=== PATIENT | female | born 1965 | race Caucasian/White ===

== ENCOUNTER 2017-10-22 21:30 | Emergency (ER) | payer MEDICARE ==
[~2017-10-22] VITALS: Ht 185.4 cm; Wt 108.9 kg
[~2017-10-22 21:30] MED LIST: ADULT LOW DOSE81 MG PO; ATIVAN0.5 MG PO; ATIVAN1 MG; ATORVASTATIN CA10 MG; CHLORPROMAZINE25 M1; CHLORPROMAZINE25 M1 PO; CIPROFLOXACIN500 M1 PO; CLEOCIN HCL300 MG PO; CYMBALTA60 MG PO; DILAUDID 2 MG TA2 MG PO; DILAUDID2 M1 PO; FENTANYL PA25 MCG/HR TP; FLEXERIL PO; HYDROCODON-ACE1 EAC7 PO; IBUPROFEN 200200 M1; IBUPROFEN 800800 M1 PO; IBUPROFEN 800800 MG PO; LISINOPRIL20 MG PO; MEDROLDOSEPACK PO; METFORMIN PO; NEURONTIN600 MG PO; NORCO 5-325 TA1 EACH PO; OXYCODONE HCL 55 MG PO; OXYCODONE HCL30 MG PO; OXYCONTIN40 MG PO; PERCOCET 5-3251 EACH PO; PHENERGAN 25 MG25 M1 PO; PHENERGAN25 M2 RC; PYRIDIUM200 MG PO; ROXICODONE5 MG PO; TOPROL XL100 MG PO; VALIUM10 MG PO; ZOLOFT100 MG PO; [UNRECOGNIZED DRUG - REMARK]
[2017-10-22 21:38] VITALS: BP 138/85
[2017-10-22] MEDS ORDERED: DOXYCYCLINE 10100 M1 PO (21:48)
== END 2017-10-22 21:59 | disposition home or self-care (01) ==
LOC: M.ERS 21:30
DX: L03.115 Cellulitis of right lower limb (principal); I10 Essential (primary) hypertension; K21.9 Gastro-esophageal reflux disease without esophagitis; G89.29 Other chronic pain; M54.9 Dorsalgia, unspecified; F17.210 Nicotine dependence, cigarettes, uncomplicated; Z88.5 Allergy status to narcotic agent; Z88.6 Allergy status to analgesic agent; Z88.0 Allergy status to penicillin; Z88.8 Allergy status to other drugs, medicaments and biological substances

== ENCOUNTER 2019-05-05 17:18 | Emergency (ER) | payer MEDICARE ==
[~2019-05-05] VITALS: Ht 185.4 cm; Wt 98.4 kg
[~2019-05-05 17:18] MED LIST changes: +DOXYCYCLINE 10100 M1 PO
[2019-05-05 17:52] VITALS: BP 102/51
[2019-05-05 18:16] LABS: INFLUENZA A ANTIGEN Negative (Negative); INFLUENZA B ANTIGEN Negative (Negative)
[2019-05-05] MEDS ORDERED: NEOMYC-POLYM-DEX5 ML OTIC (18:21)
== END 2019-05-05 18:29 | disposition home or self-care (01) ==
LOC: M.ERS 17:18
PROVIDERS: Nurse Practitioner
DX: H60.91 Unspecified otitis externa, right ear (principal); K21.9 Gastro-esophageal reflux disease without esophagitis; G89.29 Other chronic pain; E11.9 Type 2 diabetes mellitus without complications; F17.210 Nicotine dependence, cigarettes, uncomplicated; Z88.5 Allergy status to narcotic agent; Z88.0 Allergy status to penicillin; Z88.8 Allergy status to other drugs, medicaments and biological substances

== ENCOUNTER 2019-12-05 17:08 | Observation (INO) | payer MEDICARE, MEDICAID ==
[~2019-12-05] VITALS: Ht 185.4 cm; Wt 95.3 kg
[~2019-12-05 17:08] MED LIST changes: +NEOMYC-POLYM-DEX5 ML OTIC
[2019-12-05 17:09] VITALS: BP 136/71
[2019-12-05] MEDS ORDERED: NOVOLOG100 UNIT/1 SUBQ (17:11)
[2019-12-05] MEDS ORDERED: TRACEBA (17:12)
[2019-12-05] MEDS ORDERED: [UNRECOGNIZED DRUG - OTHER] (17:12)
--- NOTE | 2019-12-05 17:48 | NUR ---
UPON STANDING UP WHEN PERFORMING ORTHOSTATICS THE PATIENT HAD SYNCOPAL EPISODE, WAS SAT DOWN ON BED AND CAUTIOUSLY LAYED DOWN ONTO PILLOW. THE PATIENT PROMPTLY WOKE UP AND ASKED IF SHE PASSED OUT AGAIN. VITAL SIGNS AND EKG WAS THEN PERFORMED. THE PATIENT REMAINS A&O X4, STATES SHE JUST FEELS WEAK. SIDE RAILS UP FOR PATIENT PROTECTION.
[2019-12-05 17:58] LABS: ABSOLUTE BASOPHILS 0.1 thou/uL (0.0-0.2); ABSOLUTE EOSINOPHILS 0.1 thou/uL (0.0-0.7); ABSOLUTE LYMPHOCYTES 1.5 thou/uL (0.8-5.3); ABSOLUTE MONOCYTES 0.6 thou/uL (0.0-1.2); ABSOLUTE NEUTROPHILS 8.3 thou/uL (1.6-8.1); BASOPHILS 0.7 %; HEMATOCRIT 49.5 % (37.0-47.0); HEMOGLOBIN 16.8 gm/dL (12.0-15.0); LYMPHOCYTES 14.4 %; MCH 30.2 pg (26.0-34.0); MCHC 33.9 g/dL (28.0-37.0); MCV 89.2 fL (80.0-100.0); MONOCYTES 5.4 %; MPV 8.5 fl. (7.2-11.1); NUCLEATED RBCS 0 /100WBC; PLATELET COUNT* 279 thou/uL (150-400); POLYS 78.5 %; RBC 5.55 mil/uL (4.20-5.00); RDW-CV 14.3 % (10.5-14.5); WBC 10.6 thou/uL (4.0-11.0)
[2019-12-05 18:08] LABS: CALCIUM 8.8 mg/dL (8.5-10.1); CREATININE 1.8 mg/dL (0.6-1.3)
[2019-12-05 18:18] LABS: ALBUMIN 4.2 g/dL (3.4-5.0); TOTAL BILIRUBIN 0.5 mg/dL (<0.1-1.0); TOTAL PROTEIN 7.9 g/dL (6.4-8.2)
[2019-12-05 21:12] LABS: URINE BILIRUBIN NEGATIVE (Negative); URINE BLOOD NEGATIVE (Negative); URINE CLARITY CLEAR; URINE COLOR YELLOW; URINE GLUCOSE-RANDOM 3+ (Negative); URINE KETONES TRACE (Negative); URINE LEUKOCYTES-REFLEX NEGATIVE (Negative); URINE NITRITE-REFLEX NEGATIVE (Negative); URINE PROTEIN NEGATIVE (Negative); URINE UROBILINOGEN 0.2 E.U./dl (0.2-1.0)
[2019-12-05 21:25] VITALS: BP 122/70
[2019-12-05 21:30] VITALS: BP 132/73
[2019-12-05] MEDS ORDERED: NORCO 10-325 T1 EACH PO (22:17)
[2019-12-05] MEDS ORDERED: FARXIGA10 MG PO (23:16)
[2019-12-05] MEDS ORDERED: TRESIBA100 UNIT/1 SUBQ (23:18)
[2019-12-05] MEDS ORDERED: ZANAFLEX4 M2 PO (23:19)
[2019-12-05] MEDS ORDERED: LIPITOR 20 MG T20 M1 PO (23:19)
[2019-12-05] MEDS ORDERED: SODIUM BICARBO650 M3 PO (23:21)
[2019-12-06] VITALS: BP 146/67
[2019-12-06 04:36] VITALS: BP 144/61
--- NOTE | 2019-12-06 06:40 | NUR ---
RECEIVED PT PER CART AT APPROX 2130. PT IS AWAKE AND ORIENTED X4. ASSESSMENT DONE AND CHARTED. PT HAS NAUSEA AND VOMITING RELEIVED BY MEDICINE GIVEN PER MAR. FENTANYL GIVEN FOR CHRONIC BACK PAIN WITH PARTIAL RELIEF. HIGH FALL PRECAUTIONS IN PLACE. CALL LIGHT WITHIN REACH. PT IS CLOSELY MONITORED.
[2019-12-06 07:20] VITALS: BP 160/76
[2019-12-06 08:25] LABS: HEMATOCRIT 46.8 % (37.0-47.0); HEMOGLOBIN 15.6 gm/dL (12.0-15.0); MCH 29.9 pg (26.0-34.0); MCHC 33.3 g/dL (28.0-37.0); MCV 89.7 fL (80.0-100.0); MPV 8.2 fl. (7.2-11.1); NUCLEATED RBCS 0 /100WBC; PLATELET COUNT* 246 thou/uL (150-400); RBC 5.22 mil/uL (4.20-5.00); RDW-CV 14.3 % (10.5-14.5); WBC 11.1 thou/uL (4.0-11.0)
[2019-12-06 08:39] LABS: CALCIUM 8.8 mg/dL (8.5-10.1); CREATININE 1.6 mg/dL (0.6-1.3); POTASSIUM 4.1 mmol/L (3.5-5.1); TOTAL BILIRUBIN 0.8 mg/dL (<0.1-1.0); TOTAL PROTEIN 7.4 g/dL (6.4-8.2)
--- NOTE | 2019-12-06 09:36 | NUR ---
Nutrition: Pt admitted with gastroenteritis, syncope, dehydration. N/V/D x1 week UNIT SECY. Consult received for poor intake and wt loss. Pt stated she usually weighs 225#, now 210# and hypovolemic. She hasn't eaten much in a week. She did state she was able to drink a large water throughout the night and is about to attempt clear liquid BKFST. BG 200s, alb 4, WBC 11.1. Meds noted. H/o DM, chronic back pain. Pt agreed to Ensure Clear Apple for added protein and nutrition - RD ordered for lunch. Hopeful for increased po intake as N/V resolve. Will follow closely. Mild risk at this time. F/u 12/09/19.
--- NOTE | 2019-12-06 10:48 | EKG ---
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 : 1965 Requested By: Radha Sanchez Order Number: [id number] MD: Eulogio Weir Measurements Intervals [place] Rate: 58 P: 71 DC: 162 QRS: 55 QRSD: 108 T: 73 QT: 473 QTc: 465 Interpretive Statements Sinus rhythm septal infarct, age indeterminate Baseline wander in lead(s) II,III,aVR,aVF Compared to ECG 04/07/2013 11:52:55 No significant changes Electronically Signed On 12-06-2019 10:47:36 CDT by Eulogio Weir [email or web address] <ELECTRONICALLY SIGNED> By: Eulgoio Weir MD, FAC 12/06/19 1047 1737 1737 Eulogio Weir MD, FAC /EPI
[2019-12-06 10:51] LABS: ABSOLUTE LYMPHOCYTES 0.8 thou/uL (0.8-5.3); ABSOLUTE MONOCYTES 0.3 thou/uL (0.0-1.2); ABSOLUTE NEUTROPHILS 9.9 thou/uL (1.6-8.1)
[2019-12-06 10:52] LABS: ANISOCYTOSIS 1+; PLATELET ESTIMATE ADEQUATE; POIKILOCYTOSIS 1+
[2019-12-06 12:00] VITALS: BP 149/68
[2019-12-06 16:53] VITALS: BP 149/68
== END 2019-12-06 19:10 | disposition home or self-care (01) ==
LOC: M.ERS 17:08 → M.2W 19:46 → M.TBA-ER 19:46 → M.2W 21:30
PROVIDERS: Nurse Practitioner Family; ADMIT Internal Medicine; ATTEND Internal Medicine
DX: R55 Syncope and collapse (principal); E86.0 Dehydration; R11.2 Nausea with vomiting, unspecified; E11.9 Type 2 diabetes mellitus without complications; K21.9 Gastro-esophageal reflux disease without esophagitis; M54.9 Dorsalgia, unspecified; G89.29 Other chronic pain; F17.210 Nicotine dependence, cigarettes, uncomplicated; I10 Essential (primary) hypertension; D72.829 Elevated white blood cell count, unspecified

== ENCOUNTER 2019-12-10 15:49 | Inpatient (IN) | payer MEDICARE, MEDICAID ==
[~2019-12-10] VITALS: Ht 185.4 cm; Wt 100.1 kg
[~2019-12-10 15:49] MED LIST changes: +FARXIGA10 MG PO; +LIPITOR 20 MG T20 M1 PO; +NORCO 10-325 T1 EACH PO; +NOVOLOG100 UNIT/1 SUBQ; +SODIUM BICARBO650 M3 PO; +TRACEBA; +TRESIBA100 UNIT/1 SUBQ; +ZANAFLEX4 M2 PO; +[UNRECOGNIZED DRUG - OTHER]
[2019-12-10 16:04] VITALS: BP 149/90
[2019-12-10 16:09] LABS: URINE BILIRUBIN NEGATIVE (Negative); URINE BLOOD NEGATIVE (Negative); URINE CLARITY CLEAR; URINE COLOR YELLOW; URINE GLUCOSE-RANDOM 3+ (Negative); URINE KETONES 1+ (Negative); URINE LEUKOCYTES-REFLEX NEGATIVE (Negative); URINE NITRITE-REFLEX NEGATIVE (Negative); URINE PROTEIN 1+ (Negative); URINE UROBILINOGEN 0.2 E.U./dl (0.2-1.0)
[2019-12-10 16:35] LABS: ABSOLUTE BASOPHILS 0.1 thou/uL (0.0-0.2); ABSOLUTE EOSINOPHILS 0.1 thou/uL (0.0-0.7); ABSOLUTE MONOCYTES 0.7 thou/uL (0.0-1.2); ABSOLUTE NEUTROPHILS 9.5 thou/uL (1.6-8.1); BASOPHILS 0.6 %; EOSINOPHILS 0.9 %; HEMATOCRIT 50.7 % (37.0-47.0); HEMOGLOBIN 17.3 gm/dL (12.0-15.0); MCH 30.1 pg (26.0-34.0); MCV 88.7 fL (80.0-100.0); MONOCYTES 5.4 %; MPV 8.6 fl. (7.2-11.1); NUCLEATED RBCS 0 /100WBC; PLATELET COUNT* 310 thou/uL (150-400); POLYS 77.1 %; RBC 5.72 mil/uL (4.20-5.00); WBC 12.4 thou/uL (4.0-11.0)
[2019-12-10 16:54] LABS: CALCIUM 9.2 mg/dL (8.5-10.1); CREATININE 1.7 mg/dL (0.6-1.3); POTASSIUM 4.3 mmol/L (3.5-5.1)
[2019-12-10 16:58] LABS: ALBUMIN 4.2 g/dL (3.4-5.0); TOTAL BILIRUBIN 0.8 mg/dL (<0.1-1.0); TOTAL PROTEIN 7.7 g/dL (6.4-8.2)
[2019-12-10 19:30] VITALS: BP 97/67
[2019-12-10 20:00] VITALS: BP 117/76
[2019-12-10 23:17] LABS: AMP/METHAMP Negative (Negative); BARBITURATES Negative (Negative); BENZODIAZEPINES POSITIVE (Negative); COCAINE Negative (Negative); METHADONE Negative (Negative); OPIATES Negative (Negative); PCP Negative (Negative); THC POSITIVE (Negative)
[2019-12-11] VITALS: BP 123/64
[2019-12-11 04:00] VITALS: BP 119/65
--- NOTE | 2019-12-11 04:56 | NUR ---
Assumed pt care at 1999. Get situated to room. Aox4, Room air 90's. Tele in placed tracing sinus rhythm/ brett. Pt complains of chronic back pain rated 8 meds given (see mar) with partial relief. IV intact, IVF infusing as ordered. Pt accu check. Pt having nausea, compazine (2x) given with relief. Pt on fall precaution, pt refusing to put bed alarm, state "I promise to used call light". Pt Stand by assist, uses commode. Pt for cardiology consult. Will continue to monitor.
[2019-12-11 05:19] LABS: ABSOLUTE EOSINOPHILS 0.1 thou/uL (0.0-0.7); ABSOLUTE MONOCYTES 0.8 thou/uL (0.0-1.2); ABSOLUTE NEUTROPHILS 6.7 thou/uL (1.6-8.1); BASOPHILS 0.3 %; EOSINOPHILS 1.4 %; HEMATOCRIT 42.2 % (37.0-47.0); LYMPHOCYTES 28.4 %; MCH 30.6 pg (26.0-34.0); MCHC 34.7 g/dL (28.0-37.0); MCV 88.1 fL (80.0-100.0); MPV 8.5 fl. (7.2-11.1); NUCLEATED RBCS 0 /100WBC; PLATELET COUNT* 247 thou/uL (150-400); POLYS 62.9 %; RBC 4.78 mil/uL (4.20-5.00); RDW-CV 13.9 % (10.5-14.5); WBC 10.7 thou/uL (4.0-11.0)
[2019-12-11 05:29] LABS: HEMOGLOBIN 14.6 gm/dL (12.0-15.0)
[2019-12-11 05:35] LABS: CALCIUM 8.3 mg/dL (8.5-10.1); CREATININE 1.2 mg/dL (0.6-1.3)
[2019-12-11 05:44] LABS: POTASSIUM 3.1 mmol/L (3.5-5.1)
[2019-12-11 08:14] VITALS: BP 122/67
--- NOTE | 2019-12-11 13:29 | EKG ---
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 : 1965 Requested By: Susan Costa Order Number: [id number] MD: Eulogio Weir Measurements Intervals [place] Rate: 68 P: 75 GA: 149 QRS: 59 QRSD: 105 T: 89 QT: 547 QTc: 582 Interpretive Statements Sinus rhythm Anteroseptal infarct, age indeterminate Prolonged QT interval Compared to ECG 12/05/2019 17:37:29 Prolonged QT interval now present Myocardial infarct finding still present Electronically Signed On 12-11-2019 13:28:14 CDT by Eulogio Weir [email or web address] <ELECTRONICALLY SIGNED> By: Eulogio Weir MD, FACC 12/11/19 1328 1742 1742 Eulogio Weir MD, FAC /EPI
--- NOTE | 2019-12-11 13:45 | CON ---
[address] [address] CONSULTATION Name: RAMIREZ LÓPEZ Room: [address] IN M.R.#: [id number] Admission: 12/10/19 Attend Phys: Narendra Bell MD Discharge: Date of : 61 Report #: [id number] THIS REPORT FOR: //name// cc: ALEM Garcia family physician/PCP ALEM - No family physician/PCP ~ THIS REPORT FOR: //name// CC: Narendra CALL[facility]AY [facility] physician/PCP DATE OF SERVICE: 12/11/2019 CARDIOLOGY CONSULTATION HISTORY OF PRESENT ILLNESS: The patient is a 54-year-old white female whom I was asked to see in the hospital today after she had a syncopal spell. The patient has no previous history of heart disease. She is not very active because of chronic back pain. She notes for the past several days, she has had nausea and vomiting. She had some loose stools. Denied any fever. She has had some epigastric burning. There was no blood in her vomit. She has had no appetite. For the past several days, she has had intermittent episodes, which she feels lightheaded and will actually fall to the ground. She has not hurt herself. There is no seizure activity. Denied any biting of her tongue or loss of bowel or bladder continence. She has noticed some heaviness in her epigastrium. She has no history of chest pain, shortness of breath, palpitations, heart murmur. The patient was actually in the hospital here at [place] last week after she had vomiting, felt to be secondary to gastritis with dehydration and a syncopal spell. She was discharged home, but brought back to the hospital yesterday. She is admitted for further evaluation and treatment. PAST MEDICAL HISTORY: She has had back surgery, shoulder surgery, surgery on left foot following an accident. She has a history of hypertension, diabetes. She is on medications including insulin. MEDICATIONS: Her current medications consist of metoprolol, lisinopril, Cymbalta, insulin, Farxiga, Zanaflex, Lipitor. ALLERGIES: SHE HAS ALLERGY TO CODEINE, MORPHINE, PENICILLIN. FAMILY HISTORY: Her sister had a heart attack. SOCIAL HISTORY: She is . She and her live here in [place]. She is on disability due to chronic back pain. She has been under a lot of stress. Her apparently has rectal cancer. She does smoke a pack of [address] [place] [address] CONSULTATION Name: RAMIREZ LÓPEZ Room: [address] IN [facility].#: [id number] Admission: 12/10/19 Attend Phys: Narendra Bell MD Discharge: Date of : 61 Report #: [id number] cigarettes a day. No alcohol abuse. REVIEW OF SYSTEMS: She has had no history of stroke. She does use an inhaler occasionally. No history of liver disease. She does have chronic kidney disease. No cancer. She saw a psychiatrist in the past because of stress. No chronic skin condition. PHYSICAL EXAMINATION: GENERAL: Revealed a middle-aged female, who appeared in no distress. VITAL SIGNS: She had a blood pressure of 120/70, pulse 70. She is afebrile. HEENT: She was anicteric. Conjunctivae pink. Mucous membranes moist. NECK: Veins nondistended. No carotid bruits. CHEST: Clear to auscultation. CARDIOVASCULAR: Regular rate. No significant murmur. ABDOMEN: Soft. EXTREMITIES: Had no edema. Dorsalis pedis pulse was 1+ bilaterally. SKIN: Cool and dry. NEUROLOGIC: Nonfocal. Her ECG on admission showed a sinus rhythm. There is poor R-wave progression, nonspecific T-wave changes. There was noted to be QT prolongation. Her workup so far, she had a portable chest x-ray that showed possible right lower infiltrate. CT scan of the head was performed without contrast, this showed no acute abnormality. She was given contrast that showed no pulmonary embolus. LABORATORY DATA: Sodium 140, potassium 3.1, BUN 20, creatinine 1.2. Her troponin is 0.25. Her white blood cell count is 10.7, hemoglobin 14.6. IMPRESSION AND RECOMMENDATIONS: 1. Recurrent falls and possible syncope, suspect secondary to uncontrolled glucose and dehydration secondary to vomiting. Recommend echocardiogram. 2. Chronic back pain. 3. Diabetes. The patient has not been taking her insulin. 4. Tobacco abuse. 5. Chronic kidney disease. 6. Hyperkalemia. I would recommend replacing her potassium. 7. Borderline troponin. No evidence of acute myocardial infarction. 8. Abnormal ECG. Recommend echocardiogram. <ELECTRONICALLY SIGNED> By: Eulogio Weri MD, [facility] 12/11/19 1345 0926 [id number] Weir MD, [facility] /nt
[2019-12-11 14:38] VITALS: BP 116/67
[2019-12-11 16:00] VITALS: BP 100/61; BP 101/62; BP 105/64
--- NOTE | 2019-12-11 16:45 | NUR ---
PT REMAINS ON ENHANCED PRECAUTIONS PENDING COVID 19 TEST. IVF INFUSING. PM INSULIN HELD R/T BG 52. JUICE AND SNACK PROVIDED.
[2019-12-11 20:00] VITALS: BP 138/71
[2019-12-12] VITALS: BP 128/64
[2019-12-12 02:06] LABS: GLYCOHEMOGLOBIN (HGB A1C) 9.6 % (4.8-5.6)
[2019-12-12 04:00] VITALS: BP 117/70
--- NOTE | 2019-12-12 07:03 | NUR ---
ASSUMED CARE OF PT AFTER REPORT AT 1930. PT A&OX4. VSS. PHYSICAL ASSESSMENT COMPLETED AND CHARTED. PT ON RA. PT TRACING SR/SB ON TELE. PT COMPLAINED OF BACK PAIN-MED GIVEN PER MAR. MAINTAINED ON ENHANCED ISOLATION-PENDING COVID. PT ABLE TO SLEEP WELL ON BED. CALL LIGHT WITHIN REACH.
[2019-12-12 07:07] LABS: ABSOLUTE EOSINOPHILS 0.2 thou/uL (0.0-0.7); ABSOLUTE LYMPHOCYTES 2.9 thou/uL (0.8-5.3); ABSOLUTE MONOCYTES 0.5 thou/uL (0.0-1.2); ABSOLUTE NEUTROPHILS 4.9 thou/uL (1.6-8.1); BASOPHILS 0.6 %; EOSINOPHILS 2.3 %; HEMATOCRIT 40.5 % (37.0-47.0); HEMOGLOBIN 13.6 gm/dL (12.0-15.0); LYMPHOCYTES 33.6 %; MCH 30.2 pg (26.0-34.0); MCHC 33.7 g/dL (28.0-37.0); MCV 89.7 fL (80.0-100.0); MONOCYTES 6.4 %; MPV 8.2 fl. (7.2-11.1); NUCLEATED RBCS 0 /100WBC; PLATELET COUNT* 231 thou/uL (150-400); POLYS 57.1 %; RBC 4.51 mil/uL (4.20-5.00); RDW-CV 14.2 % (10.5-14.5); WBC 8.5 thou/uL (4.0-11.0)
[2019-12-12 07:28] LABS: ANION GAP 7 mmol/L (7-16); BUN 14 mg/dL (7-18); CALCIUM 8.3 mg/dL (8.5-10.1); CHLORIDE 108 mmol/L (98-107); CHOLESTEROL 84 mg/dL (<200); CO2 25 mmol/L (21-32); CREATININE 1.4 mg/dL (0.6-1.3); GLUCOSE 93 mg/dL (70-99); HDL CHOLESTEROL 30 mg/dL (>40); LDL CHOLESTEROL 27 mg/dL (<100); POTASSIUM 4.1 mmol/L (3.5-5.1); SODIUM 140 mmol/L (136-145); TC:HDL 2.8 Ratio (Not establshd); TRIGLYCERIDE 135 mg/dL (<150); VLDL 27 mg/dL (<40)
[2019-12-12 07:29] LABS: SERUM ASSESSMENT Clear
[2019-12-12 08:00] VITALS: BP 104/61
[2019-12-12] MEDS ORDERED: LEVAQUIN 750 M750 MG PO (10:55)
[2019-12-12 11:39] VITALS: BP 115/67
--- NOTE | 2019-12-12 12:08 | NUR ---
pt is aox4 . covid negative. on ra. complains of pain . fentanyl given. accucheck. no insulin needed. complains of nausea nd vomiting in late am before lunch. nausea medicine given. discharge pending neuro and cardio ok. neuro was contacted and is ok with her discharge. cardio is to come and see the patient before she could leave. will continue to monitor pt
--- NOTE | 2019-12-12 16:09 | NUR ---
this nurse communicated with school operations manager who wants to see patient before pt leaves the hospital. pt was awaiting for school operations manager, but pt got impatient and decided to leave ama. ama paper was signed and placed in chart. iv line removed and heart monitor retrieved. pt ambulatory.
--- NOTE | 2019-12-12 16:29 | 2DMMODE ---
[place] [address] 2 D/M-MODE ECHOCARDIOGRAM Name: RAMIREZ LÓPEZ Room: [address] IN .#: [id number] Admission: 12/10/19 Attend Phys: Narendra Bell, Discharge: 12/12/19 Date of : 61 Date of Service: 12/12/19 1628 Report #: [id number] THIS REPORT FOR: cc: FAM - No family physician/PCP FAM - No family physician/PCP Jw Iqbal MD [facility] ~ APPROVED REPORT Study performed: 12/12/2019 15:03:24 EXAM: Comprehensive 2D, Doppler, and color-flow Echocardiogram Patient Location: In-Patient Room #: 209 BSA: 2.22 HR: 61 bpm BP: 104/61 mmHg Other Information Study Quality: Good Indications Abnormal ECG 2D Dimensions IVSd: 14.43 (7-11mm) LVOT Diam: 19.65 (18-24mm) LVDd: 43.46 mm PWd: 11.21 (7-11mm) Ascending Ao: 28.00 (22-36mm) LVDs: 32.08 (25-40mm) Aortic Root: 24.79 mm Volumes Left Atrial Volume (Systole) LA ESV Index: 18.10 mL/m2 Aortic Valve AoV Peak Mendez.: 0.79 m/s AO Peak Gr.: 2.47 mmHg LVOT Max P.28 mmHg AO Mean Gr.: 1.43 mmHg LVOT Mean P.71 mmHg LVOT Max V: 0.56 m/s AO V2 VTI: 18.96 cm LVOT Mean V: 0.39 m/s KENNEDY (VTI): 2.08 cm2 LVOT V1 VTI: 12.98 [place] [address] 2 D/M-MODE ECHOCARDIOGRAM Name: RAMIREZ LÓPEZ Room: [address] IN ..#: [id number] Admission: 12/10/19 Attend Phys: Narendra Bell, Discharge: 12/12/19 Date of : 61 Date of Service: 12/12/19 1628 Report #: [id number] E/A Ratio: 1.04 MV Decel. Time: 238.27 ms MV E Max Mendez.: 0.49 m/s MV PHT: 69.10 ms MVA (PHT): 3.18 cm2 TDI E/Lateral E': 6.13 E/Medial E': 7.00 Medial E' Mendez.: 0.07 m/s Lateral E' Mendez.: 0.08 m/s Pulmonary Valve PV Peak Mendez.: 0.61 m/s PV Peak Gr.: 1.49 mmHg Left Ventricle The left ventricle is normal size. There is normal LV segmental wall motion. Borderline concentric left ventricular hypertrophy. Left ventricular systolic function is borderline. LVEF is 50-55%. Grade I - abnormal relaxation pattern. Right Ventricle The right ventricle is normal size. The right ventricular systolic function is normal. Atria The left atrium size is normal. The right atrium size is normal. Aortic Valve The aortic valve is normal in structure. No aortic regurgitation is present. There is no aortic valvular stenosis. Mitral Valve The mitral valve is normal in structure. There is no mitral valve regurgitation noted. No evidence of mitral valve stenosis. Tricuspid Valve The tricuspid valve is normal in structure. There is no tricuspid valve regurgitation noted. Pulmonic Valve The pulmonary valve is normal in structure. There is no pulmonic valvular regurgitation. Great Vessels The aortic root is normal in size. IVC is [place] [address] 2 D/M-MODE ECHOCARDIOGRAM Name: RAMIREZ LÓPEZ Room: [address] IN ..#: [id number] Admission: 12/10/19 Attend Phys: Narendra Bell, Discharge: 12/12/19 Date of : 61 Date of Service: 12/12/19 1628 Report #: [id number] collapses >50% with inspiration. Pericardium There is no pericardial effusion. <Conclusion> The left ventricle is normal size. Borderline concentric left ventricular hypertrophy. Left ventricular systolic function is borderline. LVEF is 50-55%. Grade I - abnormal relaxation pattern. The right ventricle is normal size. The left atrium size is normal. The aortic valve is normal in structure. The mitral valve is normal in structure. The tricuspid valve is normal in structure. IVC is normal in size and collapses >50% with inspiration. There is no pericardial effusion. There is normal LV segmental wall motion. <ELECTRONICALLY SIGNED> By: Jw Iqbal MD, [facility] 12/12/19 1628 1628 1628 Jw Iqbal MD, FACC /INF
--- NOTE | 2019-12-14 12:39 | CON ---
[address] [address] CONSULTATION Name: RAMIREZ LÓPEZ Room: [address] IN M.R.#: [id number] Admission: 12/10/19 Attend Phys: Narendra Bell MD Discharge: 12/12/19 Date of : 61 Report #: [id number] THIS REPORT FOR: //name// cc: ALEM Garcia family physician/PCP ALEM Garcia family physician/PCP ~ THIS REPORT FOR: //name// CC: Narendra FERRARA physician/PCP DATE OF SERVICE: 12/11/2019 HISTORY OF PRESENT ILLNESS: This is a 54-year-old female patient who was here for multiple episodes of syncope. Neurological consultation is being requested to evaluate the patient for any neurological etiology for syncope. Her history is somewhat poorly defined. She indicates she has been undergoing a lot of stress and the reason has been summarized in H and P. Reviewing the record, it would appear that she had at least one episode of hypoglycemia of a blood sugar of 52 and one episode of blood pressure being low at 97/67. She is being evaluated by Cardiology. She also had some vomiting. She had some electrolyte imbalances also with potassium of 3.1. Nobody has noticed any tonic-clonic activity in this patient. She just passes out, it typically lasts for a few seconds, and it may last for a minute. She does have some bronchitis and she is on COVID precautions. So, history is not very suspicious for any seizures or even TIA because no focal neurological deficit has been noticed. She does have some history of back pain. Her troponin is slightly high. She does have chronic kidney disease. This was a relevant 14-point review of system. PAST MEDICAL HISTORY: Negative for any stroke. FAMILY HISTORY: Unremarkable. SOCIAL HISTORY: She smokes. PHYSICAL EXAMINATION: Indicates she is alert, responsive, and able to follow simple and complex command. Her speech looks intact. Cranial nerve examination 2-12 looks mostly unremarkable. Neuromuscular examination is symmetrical. She is able to ambulate. Cardiac and respiratory examinations appear noncontributory. LABORATORY DATA: Her white count is 10.7, potassium is slightly low. Head CT is mostly unremarkable. IMPRESSION AND PLAN: It is unlikely that [place] [address] CONSULTATION Name: RAMIREZ LÓPEZ Room: [address]#: [id number] Admission: 12/10/19 Attend Phys: Narendra Bell MD Discharge: 12/12/19 Date of : 61 Report #: [id number] the patient's symptoms. Her blood sugar is fluctuating and it was low, her blood pressure went low and I suspect systemic causes are much more likely, but she did have a profound episode where she was found on the ground, this lasted only a minute. I will get an EEG and MRI to exclude any brain pathology tomorrow. I discussed all of it with the patient and she wants to follow this plan. Dr. Keys will follow up this patient with you from tomorrow. Thank you very much for this referral. <ELECTRONICALLY SIGNED> By: Jamey Wilks MD 12/14/19 1239 1836 1911Pjakub Wilks MD /nt
== END 2019-12-12 16:00 | disposition left against medical advice (07) | DRG 177 ==
LOC: M.ERS 15:49 → M.TBA-ER 17:43 → M.2W 17:43
PROVIDERS: Internal Medicine Cardiovascular Disease; Physician Assistant; ADMIT Internal Medicine; ATTEND Internal Medicine
DX: J15.6 Pneumonia due to other Gram-negative bacteria (principal); R65.11 Systemic inflammatory response syndrome (SIRS) of non-infectious origin with acute organ dysfunction; N17.9 Acute kidney failure, unspecified; E86.0 Dehydration; I95.1 Orthostatic hypotension; F41.9 Anxiety disorder, unspecified; F17.210 Nicotine dependence, cigarettes, uncomplicated; E11.22 Type 2 diabetes mellitus with diabetic chronic kidney disease; R79.89 Other specified abnormal findings of blood chemistry; M47.9 Spondylosis, unspecified; F32.9 Major depressive disorder, single episode, unspecified; N18.3 Chronic kidney disease, stage 3 (moderate); F19.10 Other psychoactive substance abuse, uncomplicated; G89.29 Other chronic pain; K21.9 Gastro-esophageal reflux disease without esophagitis; M54.9 Dorsalgia, unspecified; J20.9 Acute bronchitis, unspecified; I12.9 Hypertensive chronic kidney disease with stage 1 through stage 4 chronic kidney disease, or unspecified chronic kidney disease; E87.5 Hyperkalemia; Z79.4 Long term (current) use of insulin; Z79.899 Other long term (current) drug therapy; Z88.5 Allergy status to narcotic agent; Z88.0 Allergy status to penicillin; Z20.828 Contact with and (suspected) exposure to other viral communicable diseases

== ENCOUNTER → 2019-12-26 | Outpatient (CLI) | payer MEDICARE, MEDICAID ==
[~2019-12-26] MED LIST changes: +LEVAQUIN 750 M750 MG PO
--- NOTE | ~2019-12-26 | EEG ---
[address] [address] EEG STUDY REPORT Name: RAMIREZ LÓPEZ Room: [facility].#: [id number] Admission: 12/26/19 Attend Phys: Amanda Fregoso Discharge: Date of : 61 Report #: [id number] THIS REPORT FOR: //name// CC: Amanda Osheag DATE OF SERVICE: 12/26/2019 This patient is being evaluated for syncope. EEG was done by placing the electrode by standard 10-20 system of electrode placement. Both referential and sequential montages were used for recording. Background activity in this patient's EEG is about 9 Hz and 30 microvolt. This patient went to sleep that is associated with bilateral slowing and vertex sharp waves. Photic stimulation is unremarkable. Throughout the record, no active epileptiform activity was noticed. IMPRESSION: This patient's EEG is unremarkable. Thank you very much for this referral. By: 1632 1739Jamey Wilks MD /oliver
== END ==
LOC: M.CRD 14:00
PROVIDERS: ATTEND Family Medicine
DX: R55 Syncope and collapse (principal)

== ENCOUNTER 2020-01-15 13:56 | Emergency (ER) | payer MEDICARE, MEDICAID ==
[~2020-01-15] VITALS: Ht 185.4 cm; Wt 99.8 kg
[2020-01-15 15:20] LABS: HEMATOCRIT 50.6 % (37.0-47.0); MCH 29.8 pg (26.0-34.0); MCHC 33.6 g/dL (28.0-37.0); MCV 88.5 fL (80.0-100.0); MPV 8.5 fl. (7.2-11.1); NUCLEATED RBCS 0 /100WBC; PLATELET COUNT* 258 thou/uL (150-400); RBC 5.72 mil/uL (4.20-5.00); RDW-CV 14.1 % (10.5-14.5); WBC 10.6 thou/uL (4.0-11.0)
[2020-01-15 15:29] LABS: CALCIUM 9.1 mg/dL (8.5-10.1); CREATININE 1.7 mg/dL (0.6-1.3); POTASSIUM 4.3 mmol/L (3.5-5.1)
[2020-01-15 15:40] LABS: TOTAL BILIRUBIN 0.7 mg/dL (<0.1-1.0)
[2020-01-15 15:42] LABS: ABSOLUTE LYMPHOCYTES 0.6 thou/uL (0.8-5.3); ABSOLUTE MONOCYTES 0.5 thou/uL (0.0-1.2); ABSOLUTE NEUTROPHILS 9.4 thou/uL (1.6-8.1); ATYPICAL LYMPHS 2 %; PLATELET ESTIMATE ADEQUATE
[2020-01-15 16:15] LABS: URINE BILIRUBIN NEGATIVE (Negative); URINE BLOOD NEGATIVE (Negative); URINE CLARITY CLEAR; URINE COLOR YELLOW; URINE GLUCOSE-RANDOM 3+ (Negative); URINE KETONES 1+ (Negative); URINE LEUKOCYTES-REFLEX NEGATIVE (Negative); URINE NITRITE-REFLEX NEGATIVE (Negative); URINE PROTEIN 2+ (Negative); URINE SPECIFIC GRAVITY 1.015 (1.005-1.030); URINE UROBILINOGEN 0.2 E.U./dl (0.2-1.0)
[2020-01-15 16:21] LABS: BACTERIA-REFLEX None Seen /HPF (None Seen); SQUAMOUS 4-10 Moderate /LPF (0-3); URINE RBC None Seen /HPF (0-2); URINE WBC-REFLEX None Seen /HPF (0-5)
[2020-01-15 16:22] LABS: AMP/METHAMP Negative (Negative); BARBITURATES Negative (Negative); BENZODIAZEPINES POSITIVE (Negative); CASTS None Seen /LPF (None Seen); COCAINE Negative (Negative); CRYSTALS None Seen /LPF (None Seen); METHADONE Negative (Negative); MUCUS 0-3 Light strn/LPF (None Seen); OPIATES Negative (Negative); PCP Negative (Negative); THC POSITIVE (Negative)
[2020-01-15 17:26] VITALS: BP 166/81
--- NOTE | 2020-01-16 11:08 | EKG ---
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 : 1965 Requested By: Coco Finch Order Number: [id number] MD: Jw Iqbal Measurements Intervals [place] Rate: 67 P: 78 NV: 161 QRS: 70 QRSD: 103 T: 69 QT: 485 QTc: 512 Interpretive Statements Sinus rhythm Probable left atrial enlargement Anteroseptal infarct, age indeterminate possible Prolonged QT interval Baseline wander in lead(s) II,III,aVF Compared to ECG 12/10/2019 17:42:14 No significant changes Electronically Signed On 01-16-2020 11:08:26 CDT by Jw Iqbal [email or web address] <ELECTRONICALLY SIGNED> By: Jw Iqbal MD, FACC 01/16/20 1108 1431 1431 Jw Iqbal MD, FAC /EPI
== END 2020-01-15 17:27 | disposition home or self-care (01) ==
LOC: M.ERS 13:56
PROVIDERS: Physician Assistant
DX: D75.1 Secondary polycythemia (principal); E11.65 Type 2 diabetes mellitus with hyperglycemia; E11.22 Type 2 diabetes mellitus with diabetic chronic kidney disease; R11.15 Cyclical vomiting syndrome unrelated to migraine; I12.9 Hypertensive chronic kidney disease with stage 1 through stage 4 chronic kidney disease, or unspecified chronic kidney disease; K21.9 Gastro-esophageal reflux disease without esophagitis; N18.3 Chronic kidney disease, stage 3 (moderate); G89.29 Other chronic pain; F17.210 Nicotine dependence, cigarettes, uncomplicated; Z88.0 Allergy status to penicillin; Z88.6 Allergy status to analgesic agent; Z88.8 Allergy status to other drugs, medicaments and biological substances

== ENCOUNTER 2020-05-24 09:19 | Inpatient (IN) | payer MEDICARE, MEDICAID ==
[~2020-05-24] VITALS: Ht 185.4 cm; Wt 94.8 kg
[2020-05-24 09:25] VITALS: BP 168/95
[2020-05-24 10:14] LABS: HEMATOCRIT 47.2 % (37.0-47.0); HEMOGLOBIN 15.8 gm/dL (12.0-15.0); MCH 29.5 pg (26.0-34.0); MCHC 33.6 g/dL (28.0-37.0); MPV 8.6 fl. (7.2-11.1); NUCLEATED RBCS 0 /100WBC; PLATELET COUNT* 294 thou/uL (150-400); RBC 5.36 mil/uL (4.20-5.00); RDW-CV 14.5 % (10.5-14.5); WBC 15.8 thou/uL (4.0-11.0)
[2020-05-24 10:24] LABS: CALCIUM 9.3 mg/dL (8.5-10.1); CREATININE 1.5 mg/dL (0.6-1.3)
[2020-05-24 10:28] LABS: ALBUMIN 4.1 g/dL (3.4-5.0); TOTAL BILIRUBIN 0.9 mg/dL (<0.1-1.0); TOTAL PROTEIN 7.9 g/dL (6.4-8.2)
[2020-05-24 10:54] LABS: ABSOLUTE EOSINOPHILS 0.2 thou/uL (0.0-0.7); ABSOLUTE LYMPHOCYTES 1.4 thou/uL (0.8-5.3); ABSOLUTE MONOCYTES 0.3 thou/uL (0.0-1.2); ABSOLUTE NEUTROPHILS 13.9 thou/uL (1.6-8.1)
[2020-05-24 10:55] LABS: PLATELET ESTIMATE ADEQUATE
[2020-05-24 14:16] LABS: URINE BILIRUBIN NEGATIVE (Negative); URINE BLOOD 1+ (Negative); URINE CLARITY CLEAR; URINE COLOR YELLOW; URINE GLUCOSE-RANDOM 3+ (Negative); URINE KETONES 1+ (Negative); URINE LEUKOCYTES-REFLEX NEGATIVE (Negative); URINE NITRITE-REFLEX NEGATIVE (Negative); URINE PROTEIN 2+ (Negative); URINE SPECIFIC GRAVITY <= 1.005 (1.005-1.030); URINE UROBILINOGEN 0.2 E.U./dl (0.2-1.0)
[2020-05-24 14:21] LABS: SQUAMOUS 0-3 Few /LPF (0-3); URINE RBC 0-2 Rare /HPF (0-2); URINE WBC-REFLEX None Seen /HPF (0-5)
[2020-05-24 14:22] LABS: CASTS None Seen /LPF (None Seen); CRYSTALS None Seen /LPF (None Seen); MUCUS None Seen strn/LPF (None Seen)
[2020-05-24 14:24] LABS: AMP/METHAMP Negative (Negative); BARBITURATES Negative (Negative); BENZODIAZEPINES POSITIVE (Negative); COCAINE Negative (Negative); METHADONE Negative (Negative); OPIATES Negative (Negative); PCP Negative (Negative); THC POSITIVE (Negative)
[2020-05-24 14:32] LABS: CHOLESTEROL 141 mg/dL (<200); HDL CHOLESTEROL 46 mg/dL (>40); LDL CHOLESTEROL 72 mg/dL (<100); TC:HDL 3.1 Ratio (Not establshd); TRIGLYCERIDE 119 mg/dL (<150); VLDL 24 mg/dL (<40)
[2020-05-24 14:34] LABS: SERUM ASSESSMENT Clear
--- NOTE | 2020-05-24 16:45 | EKG ---
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 : 1965 Requested By: Darvin Whaley Order Number: [id number] MD: Jw Iqbal Measurements Intervals [place] Rate: 66 P: 82 [place]: 155 QRS: 68 QRSD: 97 T: 72 QT: 552 QTc: 579 Interpretive Statements Sinus rhythm Nonspecific T abnrm, anterolateral leads; consider ischemia or drug effect Prolonged QT interval Compared to ECG 01/15/2020 14:31:59 ST-T changes with QT prolongation have developed Electronically Signed On 05-24-2020 16:45:01 HEALTH CONSULTANT by Jw Iqbal [email or web address] <ELECTRONICALLY SIGNED> By: Jw Iqbal MD, FACC 05/24/20 1645 1012 1012 Jw Iqbal MD, FACC /EPI
--- NOTE | 2020-05-24 16:46 | EKG ---
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 : 1965 Requested By: Darvin Whaley Order Number: [id number] MD: Jw Iqbal Measurements Intervals [place] Rate: 77 P: 92 [place]: 155 QRS: 66 QRSD: 97 T: 62 QT: 448 QTc: 508 Interpretive Statements Sinus rhythm Probable left atrial enlargement Possible anteroseptal infarct, age indeterminate Prolonged QT interval consider drug effect or electrolyte imbalance Compared to ECG 05/24/2020 10:12:34 PVCs have remitted Electronically Signed On 05-24-2020 16:45:54 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
[2020-05-24 18:05] VITALS: BP 159/84
[2020-05-24 20:30] VITALS: BP 154/90
--- NOTE | 2020-05-24 21:00 | NUR ---
PT TO ROOM AT SHIFT CHANGE. AT PRESENT TIME ADMISSION ASSESSMENT AND HX OBTAINED, SEE INTERVENTION. PT C/O NAUSEA ALONG WITH ABD AND BACK PAIN. STATES HURTS FROM ALL THE PREVIOUS VOMITING SHE HAS BEEN DOING. DENIES CARDIAC PAIN. HEPARIN INFUSING. TELEMETRY ON SHOWING SR. WILL CONT TO MONITOR AND ASSIST NEEDED.
[2020-05-25] VITALS (10 sets, daily range): BP systolic 114–164; BP diastolic 72–91
[2020-05-25 05:51] LABS: ABSOLUTE BASOPHILS 0.1 thou/uL (0.0-0.2); ABSOLUTE EOSINOPHILS 0.1 thou/uL (0.0-0.7); ABSOLUTE LYMPHOCYTES 2.8 thou/uL (0.8-5.3); ABSOLUTE MONOCYTES 0.8 thou/uL (0.0-1.2); ABSOLUTE NEUTROPHILS 7.4 thou/uL (1.6-8.1); BASOPHILS 0.8 %; EOSINOPHILS 0.6 %; HEMOGLOBIN 14.8 gm/dL (12.0-15.0); LYMPHOCYTES 25.4 %; MCH 29.4 pg (26.0-34.0); MCHC 33.6 g/dL (28.0-37.0); MCV 87.4 fL (80.0-100.0); MONOCYTES 7.1 %; MPV 8.5 fl. (7.2-11.1); NUCLEATED RBCS 0 /100WBC; PLATELET COUNT* 241 thou/uL (150-400); POLYS 66.1 %; RBC 5.03 mil/uL (4.20-5.00); RDW-CV 14.5 % (10.5-14.5); WBC 11.1 thou/uL (4.0-11.0)
--- NOTE | 2020-05-25 06:00 | NUR ---
SLEPT WELL TONIGHT. NO FURTHER C/O NAUSEA. CONT TO HAVE ABD/BACK PAIN, TYLENOL EFFECTIVE. GAIT STEADY TO AND FROM BR. HEPARIN INFUSION CONT AND ADJUSTED TO PROTOCOL. TELEMETRY CONT TO SHOW SR. HS GOALS OF REST AND SAFETY ACHIEVED. HOURLY ROUNDING OBSERVED. NPO SINCE [place] FOR CARDIAC CATH THIS AM.
[2020-05-25 06:17] LABS: CALCIUM 8.6 mg/dL (8.5-10.1); CREATININE 1.2 mg/dL (0.6-1.3); POTASSIUM 3.1 mmol/L (3.5-5.1); TROPONIN-I LEVEL 0.57 ng/mL (<0.06)
--- NOTE | 2020-05-25 13:31 | NUR ---
Pt is A&O. Resides at home with . Independent. No hx of HH or SNF. Pt to have heart cath this afternoon. Pt will likely dc to home tomorrow. No needs anticipated.
--- NOTE | 2020-05-25 22:01 | NUR ---
AT 2014 PT CRYING VERY LOUD, ABLE TO HEAR HER AT NURSES STATION. UPON ENTERING ROOM PT HYPERVENTILATING. ATTEMPTING TO GET PT ATTENTION TO ASSIST WITH CALMING AND SLOWING DOWN RESP. UNABLE TO DO SO. PT HAS ARMS UP IN THE AIR, STIFF AND BEARING DOWN. CONCERNED ABOUT RT GROIN CATH SITE. TELLING PT TO RELAX AND THING HAPPY THOUGHTS. PT CRYING STATING HOW CAN SHE WHEN HER SISTER IN HER ARMS AND SHE JUST WANTS TO JOIN HER. NOTIFIED WITH ORDERS RECEIVED FOR ATIVAN. WHEN RETURNING TO ROOM PT CALMER AND APOLOGIZED. ASKING WHAT SHE SAID AND DIDN'T KNOW HOW SHE WAS ACTING. STATING IT HAS BEEN A BAD YEAR AND NEEDS TO BE HOME. DYING OF RECTAL CANCER, SISTER IN HER ARMS AND SHE IS TAKING CARE OF SISTERS WITH [employer]ERS. DISCUSSED STRESSERS COULD DEFINITELY BE CAUSING CHEST PAIN. REASSURANCE AND MEDS GIVEN FOR BACK PAIN AND ANXIETY. PT HAS BEEN CALM UP UNTIL NOW, PRESENT TIME NAUSEATED AND VOMITING.
[2020-05-26] VITALS: BP 160/84
--- NOTE | 2020-05-26 00:15 | NUR ---
MENDEZ REMOVED WITHOUT DIFFICULTY. PT AMBULATING TO BR AND BACK. ENCOURAGED TO MONITOR RT GROIN SITE FREQ.
[2020-05-26 02:06] LABS: GLYCOHEMOGLOBIN (HGB A1C) 9.7 % (4.8-5.6)
[2020-05-26 04:00] VITALS: BP 163/83
[2020-05-26 04:21] LABS: ABSOLUTE BASOPHILS 0.1 thou/uL (0.0-0.2); ABSOLUTE EOSINOPHILS 0.1 thou/uL (0.0-0.7); ABSOLUTE LYMPHOCYTES 2.6 thou/uL (0.8-5.3); ABSOLUTE MONOCYTES 0.8 thou/uL (0.0-1.2); ABSOLUTE NEUTROPHILS 8.3 thou/uL (1.6-8.1); BASOPHILS 0.4 %; EOSINOPHILS 0.8 %; HEMOGLOBIN 13.8 gm/dL (12.0-15.0); LYMPHOCYTES 22.1 %; MCHC 32.8 g/dL (28.0-37.0); MCV 88.4 fL (80.0-100.0); MONOCYTES 6.7 %; MPV 8.7 fl. (7.2-11.1); NUCLEATED RBCS 0 /100WBC; PLATELET COUNT* 239 thou/uL (150-400); RBC 4.75 mil/uL (4.20-5.00); RDW-CV 14.5 % (10.5-14.5); WBC 11.9 thou/uL (4.0-11.0)
[2020-05-26 05:19] LABS: ALBUMIN 3.2 g/dL (3.4-5.0); CREATININE 1.3 mg/dL (0.6-1.3); POTASSIUM 3.5 mmol/L (3.5-5.1); TOTAL PROTEIN 6.3 g/dL (6.4-8.2)
--- NOTE | 2020-05-26 05:24 | NUR ---
AWAKE MOST OF NIGHT. VERY ANXIOUS. UPSET BECAUSE OF NOT GETTING PO PAIN MEDS BEFORE THE PRN 6 HR. THREATEN TO LEAVE AMA BECAUSE SHE COULD GET HER OWN MEDS AT HOME. PO PAIN MED AND IV ATIVAN GIVEN WHEN AVAILABLE PT IS MANIPULATIVE. AT PRESENT TIME ASLEEP IN BED. RT GROIN REMAINS DRY, CLEAN, INTACT AND NO HEMATOMA. TELEMETRY SHOWING SB INTO 40'S WHEN SLEEPING. HS GOALS OF REST AND SAFETY ACHIEVED. HOURLY ROUNDING OBSERVED.
[2020-05-26 05:38] LABS: TROPONIN-I LEVEL 0.63 ng/mL (<0.06)
[2020-05-26 08:00] VITALS: BP 84/43
[2020-05-26] MEDS ORDERED: EFFIENT10 MG PO ×2 (10:19→18:35)
[2020-05-26] MEDS ORDERED: ASA81BEC PO (10:19)
[2020-05-26 12:29] VITALS: BP 102/50
--- NOTE | 2020-05-26 13:45 | NUR ---
CM INFORMED OF PLAN FOR PT TO D/C HOME TODAY WITH HH. CM SPOKE TO THE PT TO DISCUSS HH. PT INITIALLY ACCEPTED HH. HOWEVER WHEN INFORMED OF THE NEED TO BE HOMEBOUND PATIENT DECLINED. PT INFORMS THAT SHE HAS BEEEN 'WALKING UP AND OWN THE MOYA ABOUT A DOZEN TIMES'. CM INFORMS PT THAT IF SHE GETS HOME AND CHANGES HER MIND TO CONTACT CM. RN INFORMED OF PT'S DECISION TO DECLINE. CM WILL REMAIN AVAILABLE TO ASSIST AND FOLLOW NEEDED.
--- NOTE | 2020-05-26 13:51 | CARD ---
[address] [address] CARDIAC CATH REPORT Name: RAMIREZ LÓPEZ Room: [address] IN [facility]#: [id number] Admission: 05/24/20 Attend Phys: Narendra Bell MD Discharge: Date of : 61 Report #: [id number] THIS REPORT FOR: //name// cc: ALEM - No family physician/PCP ALEM - No family physician/PCP ~ APPROVED REPORT Study performed: 05/25/2020 16:24:11 Patient Details Patient Status: In-Patient Room #: The patient is a 54 year-old female Event Personnel Jw Iqbal Caustic Purification Operator, Yadira Gonzalez RN RN, Ney Casanova LADLE OPERATOR Monitor, Mindi Juarez RTR ScrubTosha Brad LADLE OPERATOR Monitor, Yue Lucas RN, Rodrigo Staples LADLE OPERATOR Monitor Dr. Jw Iqbal chef de partie Procedures Performed Art Access - R femoral artery Left Heart Cath w/or w/o Coronaries WILLIAM Place w/wo Plasty Single OM WILLIAM Place w/wo Plasty Addl BR OM 2 Hemostasis w/ Angioseal Indication Non-STEMI Risk Factors Family History, Hypercholesterolemia Admission/Lab Medications/Medications given during procedure 0.9% Sodium Chloride IV 125 ml per hr, Oxygen Nasal cannula 2 l per min, Lidocaine Subcut 14 ml, Midazolam (Versed) IV 2 mg, Midazolam (Versed) IV 1 mg, Nitroglycerin IC 150 mcg, Fentanyl IV 50 mcg, Angiomax IV 14 mg per kg, Angiomax Drip IV 32.25 ml per hr, Versed IV 1 mg, Effient PO 60 mg, Aspirin PO 182 mg Procedure Narrative The patient was brought urgently to the Cardiac Catheterization Laboratory and was prepped and draped in a sterile manner. The right femoral was infiltrated with 2% Lidocaine subcutaneous anesthesia. A Roscoe 6 FR sheath was inserted into the right femoral artery. Coronary angiography was performed using coronary diagnostic catheters. The right coronary system was accessed and visualized with a Diagnostic 6 Fr JR 4 catheter. [place] [address] CARDIAC CATH REPORT Name: RAMIREZ LÓPEZ Room: [address]#: [id number] Admission: 05/24/20 Attend Phys: Narendra Bell MD Discharge: Date of : 61 Report #: [id number] accessed and visualized with a Diagnostic 6 Fr JL 4 catheter. The left ventricle was accessed and visualized with a Diagnostic 6 Fr Pigtail catheter. Left ventricular/Aortic Valve gradient assessed via catheter pullback. Pre-demployment femoral angiogram was performed . Closure device was deployed with a Fr Angioseal STS 6Fr. The patient tolerated the procedure well and there were no complications associated with the procedure. A hematoma occurred. Intraoperative Conscious Sedation Sedation start time: 16:41 Case end Time: 18:02 Fentanyl 100 mcg Versed 4 mg Fluoro Time: 26.2 minutes Dose: DAP 290271 cGycm2 3550 mGy Contrast Type and Amount: Visipaque 420 ml Diagnostic Cath Left Main 0% narrowing LAD 30% mid vessel narrowing Circumflex Large dominant vessel with 75% tubular narrowing of the proximal portion of the second marginal branch with 90% stenosis of a subbranch of that first marginal branch Right Coronary Small nondominant vessel with 0% narrowing Left Ventriculography Left Ventriculography was not performed. Hemodynamics The aortic pressure is 151/64 mmHg with a mean of 89 mmHg. The left ventricular pressure is 139/3 mmHg with a mean of mmHg. The left ventricular end diastolic pressure is 6 mmHg. PCI Technique Lesion Anticoagulation was achieved with Angiomax Drip. Patient was preloaded with Angiomax IV 14 mg per kg. Percutaneous coronary intervention was performed on the Subbranch of the second obtuse marginal branch segment. The lesion stenosis prior to intervention was 90% with NATALIE 3 flow. A 6FR XB 3.0 100CM Guide Catheter was used to engage the left ostium. A BMW 180cm Interventional Guidewire was used to cross the lesion. BALLOON DILATION A Balloon catheter Mini Trek RX 2.0 X 8 was inserted and inflated up to 8.00atm for 6seconds. Additional Inflation: 12.00atm for 11seconds. Additional Inflation: 14.00atm [place] 10[place]. [place] [address] CARDIAC CATH REPORT Name: RAMIRZE LÓPEZ Room: [address] IN [facility]#: [id number] Admission: 05/24/20 Attend Phys: Narendra Bell MD Discharge: Date of : 61 Report #: [id number] STENT DEPLOYMENT A drug-eluting stent Rosendo RX stent 2.0 x 8mm was inserted and inflated up to 7.00atm for 15seconds. Additional Inflation: 9.00atm for 9seconds. Additional Inflation: 10.00atm for 9seconds. A drug-eluting stent Valier RX stent 2.0 x 8mm was inserted and inflated up to 8 STEVEN for 10 seconds and 10 STEVEN for 6 seconds. Final angiography reveals 10 % stenosis with NATALIE 3 flow. COMMENTS The PCI to the circumflex was technically complex by virtue of the bifurcation lesion involving the second marginal branch requiring extensive lesion preparation and stenting of both arms of the bifurcation lesion to achieve a satisfactory angiographic result. PCI Technique Lesion 2 Percutaneous Coronary Intervention was performed on the Second obtuse marginal branch segment. Patient was preloaded with Angiomax IV 14 mg per kg. The lesion stenosis prior to intervention was 75% with NATALIE 3 flow. A 6FR XB 3.0 100CM Guide Catheter was used to engage the left ostium. A BMW 180cm Interventional Guidewire was used to cross the lesion. Balloon Dilation A Balloon catheter Trek RX 2.25 X 15 was inserted and inflated up to 14.00atm for 10seconds. Additional Inflation: 12.00atm for 8seconds. Stent Deployment A drug-eluting stent Valier RX Stent 2.23M88ps was inserted and inflated up to 12.00atm for 9seconds. Additional Inflation: 18.00atm for 7seconds. Additional Inflation: 19.00atm for 8seconds. Final angiography reveals 0 % stenosis with NATALIE 3 flow. Conclusion 1. Significant coronary artery disease characterized by the following: A 30% mid LAD narrowing B dominant circumflex with 75% [place] [address] CARDIAC CATH REPORT Name: RAMIREZ LÓPEZ Room: [address]#: [id number] Admission: 05/24/20 Attend Phys: Narendra Bell MD Discharge: Date of : 61 Report #: [id number] portion of the prominent second marginal branch with 90% stenosis of a subbranch of the second marginal branch C small nondominant right coronary artery which appears normal 2. Normal left-sided hemodynamic study 3. Successful PCI with deployment of drug-eluting stent in the second marginal branch of the circumflex with 0% residual narrowing 4. Successful PCI with deployment of a 2 drug-eluting stents through the previously deployed second marginal stent into the subbranch with 10% residual narrowing and NATALIE-3 flow to the distal vessel Recommendations Cardiac Risk Reduction Program Aggressive Medical Therapy Medications Administered Aspirin (any) Prasugrel Diagnostic Cath Approved by: Jw Iqbal MD Date/Time: 05/26/2020 13:48:14 <ELECTRONICALLY SIGNED> By: Jw Iqbal MD, FACC 05/26/20 1351 1351 1351Jw Iqbal MD, FACC /INF
[2020-05-26] MEDS ORDERED: LISINOPRIL10 MG PO (15:03)
[2020-05-26] MEDS ORDERED: TOPROL XL25 MG PO ×2 (15:04→15:07)
[2020-05-26 15:15] VITALS: BP 102/50
--- NOTE | 2020-05-26 16:34 | NUR ---
ASSUMED CARE OF PATIENT THIS AM AT 0730. PATIENT IS ALERT AND ORIENTED X 4. SHE C/O BACK AND LEG PAIN THIS AM. PATIENT MEDICATED FOR PAIN. IN TO ROUND AND DISCHARGE ORDERS WRITTEN. PATIENT'S BP WAS LOW THIS AM. DR NOTIFIED. DR TORRES IN TO SEE PATIENT AND ORDERS GIVEN TO DECREASE BLOOD PRESSURE MEDICATION DOSAGES. SEE CHART. MEDICATIONS CHANGES EXPLAINED TO PATIENT. SALINE LOCK DISCONTINUED. TELE MONITOR DISCONTINUED. PATIENT DISCHARGED TO HOME WITH BELONGINGS. CATH SITE INTACT AND WITOUT HEMATOMA.
--- NOTE | 2020-05-26 21:33 | NUR ---
PT. AOX4, VSS, BACK PAIN UNDER CONTROL, DENIES CHEST DISCOMFORT, N/V OR DISSINESS. CALL LIGHT AND PERSONAL BELONGINGS PLACED WITHIN REACH. NPO AFTER BKEARFAST TO ALLOW PT TO EAT, PT. ATE 25%. PT. RETURNED FROM POST CATH AT 1835, VSS, NO HEMATOMA NOTED. CALL LIGHT PLACED WITHIN REACH AND EDUCATED PT TO CALL FOR ANY S/S RELATED TO R GROIN BLEEDING. PT. VERBALIZED UNDERSTANDING. PT. IN BED, IN NO APPARENT DISTRESS, AT SHIFT CHANGE.
--- NOTE | 2020-05-27 12:44 | EKG ---
[place] [address] ELECTROCARDIOGRAM REPORT Name: RAMIREZ LÓPEZ Room: [address] DIS IN M.R.#: [id number] Admission: 05/24/20 Attend Phys: Narendra Bell, Discharge: 05/26/20 Date of : 61 Date of Service: 05/26/20611 Report #: [id number] THIS REPORT FOR: //name// [facility] Test Date: 2020-05-26 Test Time: 06:12:03 Pat Name: RAMIREZ LÓPEZ Department: Room: [address] Gender: F Meat Supervisor: THOWARD3 : 1965 Requested By: Jw Iqbal Order Number: [id number] MD: Nicolás Alfredo Measurements Intervals [place] Rate: 61 P: 69 W[place]: 150 QRS: 70 QRSD: 101 T: 60 QT: 508 QTc: 512 Interpretive Statements Sinus rhythm Low voltage, precordial leads Prolonged QT interval Compared to ECG 05/24/2020 10:31:27 Low QRS voltage now present Myocardial infarct finding no longer present Electronically Signed On 05-27-2020 12:43:54 MANAGER MATH by Nicolás Alfredo [email or web address] <ELECTRONICALLY SIGNED> By: Nicolás Alfredo MD, FACC 05/27/20 1243 1 1 Nicolás Alfredo MD, FACC /EPI
--- NOTE | 2020-05-28 15:43 | NUR ---
Spoke with the patient by phone in follow up. See post ME follow up phone call. Mailed the patient her stent cards and stent book.
== END 2020-05-26 17:00 | disposition home or self-care (01) | DRG 246 ==
LOC: M.ERS 09:19 → M.TBA-ER 11:38 → M.2W 11:38
PROVIDERS: Emergency Medicine; Internal Medicine; Registered Nurse; ADMIT Internal Medicine; ATTEND Internal Medicine
PROC: B211YZZ Fluoroscopy of Multiple Coronary Arteries using Other Contrast (ICD-10-PCS; principal; 2020-05-25)
PROC: 027036Z Dilation of Coronary Artery, One Artery with Three Drug-eluting Intraluminal Devices, Percutaneous Approach (ICD-10-PCS; principal; 2020-05-25)
PROC: 4A023N7 Measurement of Cardiac Sampling and Pressure, Left Heart, Percutaneous Approach (ICD-10-PCS; principal; 2020-05-25)
DX: I21.4 Non-ST elevation (NSTEMI) myocardial infarction (principal); N17.0 Acute kidney failure with tubular necrosis; R65.11 Systemic inflammatory response syndrome (SIRS) of non-infectious origin with acute organ dysfunction; E87.1 Hypo-osmolality and hyponatremia; E86.0 Dehydration; E87.6 Hypokalemia; E11.65 Type 2 diabetes mellitus with hyperglycemia; I25.10 Atherosclerotic heart disease of native coronary artery without angina pectoris; G89.29 Other chronic pain; M54.9 Dorsalgia, unspecified; K21.9 Gastro-esophageal reflux disease without esophagitis; D72.829 Elevated white blood cell count, unspecified; I12.9 Hypertensive chronic kidney disease with stage 1 through stage 4 chronic kidney disease, or unspecified chronic kidney disease; F12.90 Cannabis use, unspecified, uncomplicated; F17.210 Nicotine dependence, cigarettes, uncomplicated; E11.22 Type 2 diabetes mellitus with diabetic chronic kidney disease; E78.5 Hyperlipidemia, unspecified; N18.30 Chronic kidney disease, stage 3 unspecified; Z20.828 Contact with and (suspected) exposure to other viral communicable diseases; Z79.4 Long term (current) use of insulin; Z79.899 Other long term (current) drug therapy; Z88.5 Allergy status to narcotic agent; Z88.0 Allergy status to penicillin; Z88.8 Allergy status to other drugs, medicaments and biological substances

== ENCOUNTER 2020-07-30 13:24 | Inpatient (IN) | payer MEDICARE, MEDICAID ==
[~2020-07-30] VITALS: Ht 185.4 cm; Wt 93.0 kg
[2020-07-30 13:24] VITALS: BP 145/88
[~2020-07-30 13:24] MED LIST changes: +ASA81BEC PO; +EFFIENT10 MG PO; +LISINOPRIL10 MG PO; +TOPROL XL25 MG PO
[2020-07-30 13:47] LABS: ABSOLUTE EOSINOPHILS 0.2 thou/uL (0.0-0.7); ABSOLUTE LYMPHOCYTES 1.3 thou/uL (0.8-5.3); ABSOLUTE MONOCYTES 0.4 thou/uL (0.0-1.2); ABSOLUTE NEUTROPHILS 9.6 thou/uL (1.6-8.1); BASOPHILS 0.2 %; HEMATOCRIT 51.2 % (37.0-47.0); LYMPHOCYTES 11.4 %; MCH 29.3 pg (26.0-34.0); MCHC 33.1 g/dL (28.0-37.0); MCV 88.5 fL (80.0-100.0); MONOCYTES 3.1 %; NUCLEATED RBCS 0 /100WBC; PLATELET COUNT* 269 thou/uL (150-400); POLYS 83.3 %; RBC 5.79 mil/uL (4.20-5.00); RDW-CV 14.4 % (10.5-14.5); WBC 11.5 thou/uL (4.0-11.0)
[2020-07-30 13:56] LABS: CREATININE 1.5 mg/dL (0.6-1.3)
[2020-07-30 13:59] LABS: APTT 28.2 Seconds (25.0-31.3); PROTIME 10.4 Seconds (9.20-11.50)
[2020-07-30 14:01] LABS: ALBUMIN 4.5 g/dL (3.4-5.0); TOTAL BILIRUBIN 0.6 mg/dL (<0.1-1.0); TOTAL PROTEIN 8.3 g/dL (6.4-8.2)
--- NOTE | 2020-07-30 18:37 | EKG ---
[place] [address] ELECTROCARDIOGRAM REPORT Name: RAMIREZ LÓPEZ Room: [place] [address] ADM IN ..#: [id number] Admission: 07/30/20 Attend Phys: Tommy Singleton Discharge: Date of : 61 Date of Service: 07/30/20 1405 Report #: [id number] THIS REPORT FOR: //name// [facility] ED Test Date: 2020-07-30 Test Time: 14:05:47 Pat Name: RAMIREZ LÓPEZ Department: Room: [facility] Gender: F Residential Sales Rep: CCD : 1965 Requested By: Radah Sanchez Order Number: [id number] MD: Jw Iqbal Measurements Intervals [place] Rate: 51 P: 69 RI: 155 QRS: 66 QRSD: 105 T: 66 QT: 569 QTc: 525 Interpretive Statements Sinus rhythm Anteroseptal infarct, age indeterminate Prolonged QT interval Compared to ECG 05/26/2020 06:12:03 Myocardial infarct finding now present Electronically Signed On 07-30-2020 18:37:29 ASSOCIATE PROFESSOR COMPUTER SCIENCE by Jw Iqbal [email or web address] <ELECTRONICALLY SIGNED> By: Jw Iqbal MD, [facility] 07/30/20 1837 1405 1405 Jw Iqbal MD, [facility] /EPI
[2020-07-30 21:58] VITALS: BP 146/73
[2020-07-31 02:00] VITALS: BP 137/65
[2020-07-31 03:22] VITALS: BP 137/65
[2020-07-31 03:30] VITALS: BP 137/65; BP 145/63
--- NOTE | 2020-07-31 03:36 | NUR ---
PT ADMITTED TO ROOM 228 AT 0330. PT INSTRUCTED TO REMAIN NPO FOR CARDIOLOGY CONSULT IN AM. CALL LIGHT IN REACH, PT DEMONSTRATES PROPER USE.
[2020-07-31 08:00] VITALS: BP 150/65
[2020-07-31 12:10] VITALS: BP 154/71
--- NOTE | 2020-07-31 14:29 | 2DMMODE ---
[place] [address] 2 D/M-MODE ECHOCARDIOGRAM Name: RAMIREZ LÓPEZ Room: [address] ADM IN .Gil.#: [id number] Admission: 07/30/20 Attend Phys: Tommy Singleton Discharge: Date of : 61 Date of Service: 07/31/20 1429 Report #: [id number] THIS REPORT FOR: cc: Justo Nowak MD,Justo Iqbal,Jw Uribe MD [facility] ~ APPROVED REPORT Study performed: 07/31/2020 11:51:10 EXAM: Comprehensive 2D, Doppler, and color-flow Echocardiogram Patient Location: In-Patient Room #: 228 Status: routine BSA: 2.17 HR: 70 bpm BP: 150/65 mmHg Rhythm: NSR Other Information Study Quality: Good Indications CAD 2D Dimensions IVSd: 11.24 (7-11mm) LVOT Diam: 21.81 (18-24mm) LVDd: 49.70 mm PWd: 10.38 (7-11mm) Ascending Ao: 30.79 (22-36mm) LVDs: 32.34 (25-40mm) Aortic Root: 33.52 mm Volumes Left Atrial Volume (Systole) LA ESV Index: 22.30 mL/m2 Aortic Valve AoV Peak Mendez.: 1.25 m/s AO Peak Gr.: 6.22 mmHg LVOT Max P.47 mmHg AO Mean Gr.: 3.25 mmHg LVOT Mean P.96 mmHg LVOT Max V: 1.06 m/s AO V2 VTI: 28.93 cm LVOT Mean V: 0.63 m/s KENNEDY (VTI): 3.63 cm2 LVOT V1 VTI: 28.08 [place] [address] 2 D/M-MODE ECHOCARDIOGRAM Name: RAMIREZ LÓPEZ Room: [address] IN ..#: [id number] Admission: 07/30/20 Attend Phys: Tommy Singleton Discharge: Date of : 61 Date of Service: 07/31/20 1429 Report #: [id number] Mitral Valve E/A Ratio: 0.88 MV Decel. Time: 229.99 ms MV E Max Mendez.: 0.74 m/s MV PHT: 66.70 ms MVA (PHT): 3.30 cm2 TDI E/Lateral E': 6.73 E/Medial E': 6.17 Medial E' Mendez.: 0.12 m/s Lateral E' Mendez.: 0.11 m/s Pulmonary Valve PV Peak Mendez.: 0.81 m/s PV Peak Gr.: 2.60 mmHg Tricuspid Valve RAP Estimate: 5.00 mmHg TR Peak Gr.: 28.66 mmHg RVSP: 33.00 mmHg PA Pressure: 33.00 mmHg Left Ventricle The left ventricle is normal size. There is normal LV segmental wall motion. There is normal left ventricular wall thickness. Left ventricular systolic function is normal. The left ventricular ejection fraction is within the normal range. LVEF is 55-60%. Grade I - abnormal relaxation pattern. Right Ventricle The right ventricle is normal size. The right ventricular systolic function is normal. Atria The left atrium size is normal. The right atrium size is normal. Aortic Valve The aortic valve is normal in structure. No aortic regurgitation is present. There is no aortic valvular stenosis. Mitral Valve The mitral valve is normal in structure. There is no mitral valve regurgitation noted. No evidence of mitral valve stenosis. Tricuspid Valve The tricuspid valve is normal in structure. Trace tricuspid regurgitation. [place] [address] 2 D/M-MODE ECHOCARDIOGRAM Name: RAMIREZ LÓPEZ Room: [address] IN ..#: [id number] Admission: 07/30/20 Attend Phys: Tommy Singleton Discharge: Date of : 61 Date of Service: 07/31/20 1429 Report #: [id number] Pulmonic Valve The pulmonary valve is normal in structure. There is no pulmonic valvular regurgitation. Great Vessels The aortic root is normal in size. IVC is normal in size and collapses >50% with inspiration. Pericardium There is no pericardial effusion. <Conclusion> The left ventricle is normal size. There is normal left ventricular wall thickness. Left ventricular systolic function is normal. The left ventricular ejection fraction is within the normal range. LVEF is 55-60%. Grade I - abnormal relaxation pattern. The right ventricle is normal size. The aortic valve is normal in structure. The mitral valve is normal in structure. The tricuspid valve is normal in structure. IVC is normal in size and collapses >50% with inspiration. There is no pericardial effusion. There is normal LV segmental wall motion. <ELECTRONICALLY SIGNED> By: Jw Iqbal MD, [facility] 07/31/20 1429 1429 1429 Jw Iqbal MD, FACC /INF
--- NOTE | 2020-07-31 14:41 | NUR ---
CM COMPLETED THE INITIAL ASSESSMENT. PT LIVES AT HOME W/SPOUSE. PT ENDORSE GOOD FAMILY SUPPORT. PT IS DISABLED D/T 4 SPINAL SX. PT STATES SHE HAS HX W/OUTPT PT, BUT DENIES HH OR SNF. PT STATES SHE IS ABLE TO DRIVE AND PROVIDE HER OWN SELF CARE. PT HAS 0 DMES. CM TO CONT TO FOLLOW.
[2020-07-31 16:50] VITALS: BP 132/72
--- NOTE | 2020-07-31 17:55 | NUR ---
SHIFT NOTE A/OX4.FC.JHA. NO DISTRESS NOTED. VSS. NO SYNCOPE. NO FALLS. NO CHANGE IN LOC. CHRONIC BACK PAIN IS UNDER CONTROL. TOLERATED PO TODAY. HAS NO COMPLAINTS. WILL CONT TO MONITOR.
[2020-08-01] VITALS: BP 142/76
[2020-08-01 04:00] VITALS: BP 149/74
[2020-08-01 04:30] LABS: HEMATOCRIT 44.8 % (37.0-47.0); MCH 29.4 pg (26.0-34.0); MCHC 33.4 g/dL (28.0-37.0); MPV 8.4 fl. (7.2-11.1); RBC 5.09 mil/uL (4.20-5.00); RDW-CV 14.6 % (10.5-14.5); WBC 13.5 thou/uL (4.0-11.0)
[2020-08-01 04:49] LABS: ALKALINE PHOSPHATASE 94 U/L (46-116); ANION GAP 12 mmol/L (7-16); BUN 22 mg/dL (7-18); CALCIUM 9.3 mg/dL (8.5-10.1); CHLORIDE 100 mmol/L (98-107); CO2 25 mmol/L (21-32); CREATININE 1.4 mg/dL (0.6-1.3); GLUCOSE 154 mg/dL (70-99); MAGNESIUM 2.1 mg/dL (1.8-2.4); POTASSIUM 3.7 mmol/L (3.5-5.1); SGOT 20 U/L (15-37); SGPT 27 U/L (30-65); SODIUM 137 mmol/L (136-145); TOTAL BILIRUBIN 0.9 mg/dL (<0.1-1.0); TOTAL PROTEIN 7.1 g/dL (6.4-8.2); TROPONIN-I LEVEL <0.06 ng/mL (<0.06)
[2020-08-01 07:55] VITALS: BP 125/68
[2020-08-01] MEDS ORDERED: BENAZEPRIL HCL20 MG PO (10:22)
[2020-08-01 11:21] VITALS: BP 125/68
[2020-08-01 11:44] VITALS: BP 167/71
--- NOTE | 2020-08-01 13:15 | NUR ---
DC NSG NOTE PT HAS AN ORDER TO DC HOME. A/OX4.FC.JHA. NOT IN ANY DISTRESS. VSS. SR PER MONITOR. PAIN IS UNDER CONTROL. DENIES SOA, NAUSEA OR DIZZINESS. UP AD TAB. PIV DC'D. PT WILL BE TAKEN HOME BY HER . DC EDUCATION AND INSTRUCTIONS GIVEN TO PT AND SHE VERBALIZED UNDERSTANDING. PT TOOK ALL HER BELONGINGS.
--- NOTE | 2020-08-01 14:40 | NUR ---
CM INFORMED DURING PRIME ROUNDING OF THE PLAN OF CARE FOR THE PT. PLAN FOR TO TO D/C HOME TODAY WITH SELF-CARE. NO CM D/C PLANNING NEEDS ANTICIPATED. CM WILL REMAIN AVAILABLE TO ASSIST AND FOLLOW NEEDED.
[2020-08-06 12:06] LABS: DOPAMINE 121 pg/mL (0-48); EPINEPHRINE 64 pg/mL (0-62); NOREPINEPHRINE 1502 pg/mL (0-874)
== END 2020-08-01 13:30 | disposition home or self-care (01) | DRG 305 ==
LOC: M.ERS 13:24 → M.2W 17:05 → M.TBA-ER 17:05 → M.2W 07-31 03:57
PROVIDERS: Internal Medicine; Nurse Practitioner Family; ADMIT Internal Medicine; ATTEND Internal Medicine
DX: I16.1 Hypertensive emergency (principal); G89.29 Other chronic pain; M54.9 Dorsalgia, unspecified; K21.9 Gastro-esophageal reflux disease without esophagitis; N18.30 Chronic kidney disease, stage 3 unspecified; E11.22 Type 2 diabetes mellitus with diabetic chronic kidney disease; F12.90 Cannabis use, unspecified, uncomplicated; I25.10 Atherosclerotic heart disease of native coronary artery without angina pectoris; E78.5 Hyperlipidemia, unspecified; E27.9 Disorder of adrenal gland, unspecified; I12.9 Hypertensive chronic kidney disease with stage 1 through stage 4 chronic kidney disease, or unspecified chronic kidney disease; Z20.822 Contact with and (suspected) exposure to COVID-19; F17.210 Nicotine dependence, cigarettes, uncomplicated; Z95.5 Presence of coronary angioplasty implant and graft; I25.2 Old myocardial infarction; Z88.6 Allergy status to analgesic agent; Z88.0 Allergy status to penicillin; Z88.8 Allergy status to other drugs, medicaments and biological substances

== ENCOUNTER 2021-02-01 07:46 | Emergency (ER) | payer MEDICARE, MEDICAID ==
[~2021-02-01] VITALS: Ht 185.4 cm; Wt 104.3 kg
[~2021-02-01 07:46] MED LIST changes: +BENAZEPRIL HCL20 MG PO
[2021-02-01] MEDS ORDERED: LISINOPRIL20 MG PO (08:07)
[2021-02-01 09:10] LABS: ABSOLUTE BASOPHILS 0.1 thou/uL (0.0-0.2); ABSOLUTE EOSINOPHILS 0.2 thou/uL (0.0-0.7); ABSOLUTE LYMPHOCYTES 1.9 thou/uL (0.8-5.3); ABSOLUTE MONOCYTES 0.5 thou/uL (0.0-1.2); ABSOLUTE NEUTROPHILS 9.3 thou/uL (1.6-8.1); BASOPHILS 0.6 %; EOSINOPHILS 1.9 %; HEMOGLOBIN 15.6 gm/dL (12.0-15.0); LYMPHOCYTES 15.8 %; MCH 29.5 pg (26.0-34.0); MCV 86.8 fL (80.0-100.0); MONOCYTES 4.5 %; MPV 8.3 fl. (7.2-11.1); NUCLEATED RBCS 0 /100WBC; PLATELET COUNT* 252 thou/uL (150-400); POLYS 77.2 %; RBC 5.31 mil/uL (4.20-5.00); RDW-CV 13.7 % (10.5-14.5)
[2021-02-01 09:21] LABS: CALCIUM 9.7 mg/dL (8.5-10.1); CREATININE 1.3 mg/dL (0.6-1.3); POTASSIUM 4.4 mmol/L (3.5-5.1)
[2021-02-01 09:33] LABS: ALBUMIN 4.5 g/dL (3.4-5.0); TOTAL BILIRUBIN 0.6 mg/dL (<0.1-1.0); TOTAL PROTEIN 7.9 g/dL (6.4-8.2)
--- NOTE | 2021-02-01 09:46 | EKG ---
[place] [address] ELECTROCARDIOGRAM REPORT Name: RAMIREZ LÓPEZ Room: [facility]#: [id number] Admission: 02/01/21 Attend Phys: Discharge: Date of : 61 Date of Service: 02/01/21809 Report #: [id number] THIS REPORT FOR: //name// [facility] ED Test Date: 2021-02-01 Test Time: 08:10:09 Pat Name: RAMIREZ LÓPEZ Department: Room: Gender: Camera Tuning Engineer: JEFFRY : 1965 Requested By: Oscar Rosas Order Number: [id number] MD: Eulogio Weir Measurements Intervals [place] Rate: 74 P: 84 NC: 160 QRS: 62 QRSD: 91 T: 77 QT: 438 QTc: 486 Interpretive Statements Sinus rhythm Probable left atrial enlargement Anteroseptal infarct, age indeterminate Compared to ECG 07/30/2020 14:05:47 Prolonged QT interval no longer present Myocardial infarct finding still present Electronically Signed On 02-01-2021 9:46:09 CDT by Eulogio Weir [email or web address] <ELECTRONICALLY SIGNED> By: Eulogio Weir MD, [facility] 02/01/21 0946 0810 Eulogio Weir MD, [facility] /EPI
[2021-02-01 10:35] LABS: URINE BILIRUBIN NEGATIVE (Negative); URINE BLOOD NEGATIVE (Negative); URINE CLARITY CLEAR; URINE COLOR YELLOW; URINE GLUCOSE-RANDOM 1+ (Negative); URINE KETONES NEGATIVE (Negative); URINE LEUKOCYTES NEGATIVE (Negative); URINE NITRITE NEGATIVE (Negative); URINE PROTEIN 2+ (Negative); URINE SPECIFIC GRAVITY 1.015 (1.005-1.030); URINE UROBILINOGEN 0.2 E.U./dl (0.2-1.0)
[2021-02-01 10:43] LABS: AMP/METHAMP Negative (Negative); BARBITURATES Negative (Negative); BENZODIAZEPINES POSITIVE (Negative); COCAINE Negative (Negative); METHADONE Negative (Negative); OPIATES Negative (Negative); PCP Negative (Negative); THC POSITIVE (Negative)
[2021-02-01 10:44] LABS: BACTERIA 1-9 Few /HPF (None Seen); CASTS None Seen /LPF (None Seen); CRYSTALS None Seen /LPF (None Seen); MUCUS None Seen strn/LPF (None Seen); SQUAMOUS 0-3 Few /LPF (0-3); URINE RBC 0-2 Rare /HPF (0-2); URINE WBC None Seen /HPF (0-5)
[2021-02-01] MEDS ORDERED: HYDROCODON-ACE1 EAC7 PO (12:54)
[2021-02-01] MEDS ORDERED: PHENERGAN 25 MG25 M1 PO (12:54)
[2021-02-01 13:43] VITALS: BP 165/83
--- NOTE | 2021-02-05 11:11 | CON ---
[address] [address] CONSULTATION Name: RAMIREZ LÓPEZ Room: [facility] KALLI Burgos#: [id number] Admission: 02/01/21 Attend Phys: Discharge: 02/01/21 Date of : 61 Report #: [id number] THIS REPORT FOR: cc: Justo Nowak MD,Justo Weir,Eulogio Whitehead MD [facility] ~ DATE OF CONSULTATION: 02/01/2021 CARDIOLOGY CONSULTATION HISTORY OF PRESENT ILLNESS: The patient is a 55-year-old white female who I was asked to see in the emergency room today after she apparently had a fainting spell. The patient has an extensive and complicated past medical history. She is not very active because of chronic back pain. She presented in 05/2020, not feeling well. She ruled in for non-STEMI. Dr. Iqbal placed a drug-eluting stent in the circumflex artery. She apparently did go through cardiac rehabilitation. She is readmitted here to [place] in July after she fell. She complained of palpitations. She is felt to be dehydrated. She was sent home with a campus monitor. This showed PVCs and short run of ventricular tachycardia. The patient was brought by family members to the emergency room this morning. Apparently, she felt nauseated and vomited. She passed out at home. In the waiting room, she apparently had another fainting spell. Cardiology consultation requested. She does have occasional heaviness in chest, although it is not related to exertion. She has had no blood in her vomit. She does have some abdominal pain. She has a chronic cough. She notes occasional episodes where her heart rate will increase. She denies exertional dyspnea or lower extremity edema. PAST MEDICAL HISTORY: She has had 4 back surgeries. She has diabetes, hypertension, hyperlipidemia. CURRENT MEDICATIONS: Include aspirin, Effient, metoprolol, Cymbalta, hydrocodone, insulin, Lipitor, lisinopril. ALLERGIES: SHE HAS A PREVIOUS INTOLERANCE TO CODEINE AND MORPHINE AND PENICILLIN. FAMILY HISTORY: There is no history of heart disease in the family. SOCIAL HISTORY: She is . She and her live here in [place]. She is on disability because of chronic back pain. Smokes a pack of cigarettes a day. Rarely drinks alcohol. No illicit drug use. REVIEW OF SYSTEMS: She has had no history of a stroke, liver disease, GI bleeding, kidney disease, cancer, psychiatric illness [place] [address] CONSULTATION Name: RAMIREZ LÓPEZ Room: [facility]#: [id number] Admission: 02/01/21 Attend Phys: Discharge: 02/01/21 Date of : 61 Report #: [id number] PHYSICAL EXAMINATION: GENERAL: Revealed a middle-aged female who appeared in mild distress secondary to back pain. VITAL SIGNS: She had a blood pressure of 160/90, pulse 60. She is afebrile. HEENT: She was anicteric. Conjunctivae pink. Mucosa is moist. NECK: Veins do not appear distended. No carotid bruits. Neck supple. CHEST: Clear to auscultation. HEART: Regular rate and rhythm. ABDOMEN: Soft. EXTREMITIES: Had no edema. Dorsalis pedis pulse cannot be palpated. SKIN: Cool and dry. NEUROLOGIC: Nonfocal. LABORATORY DATA: ECG showed a sinus rhythm. There was no significant ST or T-wave changes noted. Her workup, she had an echocardiogram in 07/2020 that showed an ejection fraction of 60%, no significant valvular abnormality. Her x-rays in the emergency room, she actually had a CT scan of the head that was unremarkable. She had a portable chest x-ray that showed right lower lobe infiltrate, otherwise unremarkable. Carotid Doppler study performed last May showed plaque formation. Her lab work in the Emergency Room, creatinine 1.3, glucose is 211. Her liver function studies were normal. Troponins were all less than 0.06. Her white blood cell count was 12.0, hemoglobin 15.6. Her COVID antigen stat test was negative. Urinalysis, 2+ protein, no wbc's, few bacteria. IMPRESSION AND RECOMMENDATIONS: 1. Chest heaviness. No acute myocardial infarction. I would continue aspirin and Effient. 2. Hypertension. The patient is on an SHAHNAZ inhibitor and beta yojana. 3. Hyperlipidemia. The patient is on a statin drug. 4. Diabetes. The patient on insulin. 5. Chronic back pain. 6. Tobacco abuse. 7. Loss of consciousness. Suspect vasovagal. The patient on a previous campus monitor showed occasional PVC. <ELECTRONICALLY SIGNED> By: Eulogio Weir MD, [facility] 02/05/21 1111 1138 1220Davianiyah Weir MD, FAC /nt
== END 2021-02-01 13:45 | disposition home or self-care (01) ==
LOC: M.ERS 07:46
PROVIDERS: Emergency Medicine Emergency Medical Services
DX: R55 Syncope and collapse (principal); Z20.822 Contact with and (suspected) exposure to COVID-19; M25.561 Pain in right knee; M25.551 Pain in right hip; M54.5 Low back pain; E11.9 Type 2 diabetes mellitus without complications; K21.9 Gastro-esophageal reflux disease without esophagitis; N18.30 Chronic kidney disease, stage 3 unspecified; F17.210 Nicotine dependence, cigarettes, uncomplicated; Z79.899 Other long term (current) drug therapy; Z79.4 Long term (current) use of insulin; Z88.5 Allergy status to narcotic agent; Z88.0 Allergy status to penicillin; Z88.8 Allergy status to other drugs, medicaments and biological substances

== ENCOUNTER 2021-02-26 21:28 | Observation (INO) | payer MEDICARE, MEDICAID ==
[~2021-02-26] VITALS: Ht 185.4 cm; Wt 91.2 kg
--- NOTE | 2021-02-26 21:34 | NUR ---
CODE STROKE CALLED AT 2121
[2021-02-26 22:04] VITALS: BP 176/91
--- NOTE | 2021-02-26 22:04 | NUR ---
CANCEL CODE STROKE AT [address] HASSAN
[2021-02-26 22:30] LABS: ABSOLUTE EOSINOPHILS 0.2 thou/uL (0.0-0.7); ABSOLUTE LYMPHOCYTES 1.4 thou/uL (0.8-5.3); ABSOLUTE MONOCYTES 0.4 thou/uL (0.0-1.2); ABSOLUTE NEUTROPHILS 8.5 thou/uL (1.6-8.1); BASOPHILS 0.5 %; EOSINOPHILS 1.8 %; HEMATOCRIT 41.5 % (37.0-47.0); HEMOGLOBIN 14.4 gm/dL (12.0-15.0); LYMPHOCYTES 13.6 %; MCH 29.9 pg (26.0-34.0); MCHC 34.6 g/dL (28.0-37.0); MCV 86.5 fL (80.0-100.0); MONOCYTES 3.6 %; MPV 8.1 fl. (7.2-11.1); NUCLEATED RBCS 0 /100WBC; PLATELET COUNT* 282 thou/uL (150-400); POLYS 80.5 %; RDW-CV 14.5 % (10.5-14.5); WBC 10.6 thou/uL (4.0-11.0)
[2021-02-26 22:38] LABS: CALCIUM 9.2 mg/dL (8.5-10.1); CREATININE 1.3 mg/dL (0.6-1.3); POTASSIUM 4.2 mmol/L (3.5-5.1)
[2021-02-26 22:40] LABS: PROTIME 10.9 Seconds (9.20-11.50)
[2021-02-26 22:42] LABS: ALBUMIN 4.1 g/dL (3.4-5.0); TOTAL BILIRUBIN 0.8 mg/dL (<0.1-1.0); TOTAL PROTEIN 7.1 g/dL (6.4-8.2)
[2021-02-26 23:35] LABS: URINE BILIRUBIN NEGATIVE (Negative); URINE BLOOD NEGATIVE (Negative); URINE CLARITY CLEAR; URINE COLOR YELLOW; URINE GLUCOSE-RANDOM 1+ (Negative); URINE KETONES 1+ (Negative); URINE LEUKOCYTES-REFLEX NEGATIVE (Negative); URINE NITRITE-REFLEX NEGATIVE (Negative); URINE PROTEIN 1+ (Negative); URINE UROBILINOGEN 0.2 E.U./dl (0.2-1.0)
[2021-02-26 23:41] LABS: AMP/METHAMP Negative (Negative); BARBITURATES Negative (Negative); BENZODIAZEPINES POSITIVE (Negative); COCAINE Negative (Negative); METHADONE Negative (Negative); OPIATES Negative (Negative); PCP Negative (Negative); THC POSITIVE (Negative)
[2021-02-27 08:30] VITALS: BP 150/85
--- NOTE | 2021-02-27 10:47 | EKG ---
[place] [address] ELECTROCARDIOGRAM REPORT Name: RAMIREZ LÓPEZ Room: [address] M..#: [id number] Admission: 02/27/21 Attend Phys: Tommy Singleton Discharge: Date of : 61 Date of Service: 02/26/212142 Report #: [id number] THIS REPORT FOR: //name// [facility] ED Test Date: 2021-02-26 Test Time: 21:43:30 Pat Name: RAMIREZ LÓPEZ Department: Room: [facility] Gender: F Occupational Analyst: MS : 1965 Requested By: Kelly Arvizu Order Number: [id number] MD: wJ Iqbal Measurements Intervals [place] Rate: 53 P: 106 FL: 163 QRS: 146 QRSD: 101 T: 123 QT: 520 QTc: 489 Interpretive Statements Right and left arm electrode reversal Sinus rhythm Probable left atrial enlargement Anteroseptal infarct, age indeterminate Baseline wander in lead(s) II,III,aVR,aVF Compared to ECG 02/01/2021 08:10:09 Lead reversal is noted Electronically Signed On 02-27-2021 10:47:23 CDT by Jw Iqbal [email or web address] <ELECTRONICALLY SIGNED> By: Jw Iqbal MD, [facility] 02/27/21 1047 42 214 Jw Iqbal MD, [facility] /EPI
--- NOTE | 2021-02-27 10:48 | EKG ---
[place] [address] ELECTROCARDIOGRAM REPORT Name: RAMIREZ LÓPEZ Room: [address] M..#: [id number] Admission: 02/27/21 Attend Phys: Tommy Singleton Discharge: Date of : 61 Date of Service: 02/27/21 0118 Report #: [id number] THIS REPORT FOR: //name// [facility] ED Test Date: 2021-02-27 Test Time: 01:18:41 Pat Name: RAMIREZ LÓPEZ Department: Room: [facility] Gender: F Care Professional: TIERNEY : 1965 Requested By: Kelly Arvizu Order Number: [id number] MD: Jw Iqbal Measurements Intervals [place] Rate: 59 P: 74 ND: 156 QRS: 51 QRSD: 95 T: 61 QT: 503 QTc: 499 Interpretive Statements Sinus rhythm Ventricular trigeminy Anteroseptal infarct, age indeterminate Compared to ECG 02/26/2021 21:43:30 Ventricular premature complex(es) now present Myocardial infarct finding still present Electronically Signed On 02-27-2021 10:47:58 CDT by Jw Iqbal [email or web address] <ELECTRONICALLY SIGNED> By: Jw Iqbal MD, [facility] 02/27/21 1047 7 7 Jw Iqbal MD, [facility] /EPI
--- NOTE | 2021-02-27 10:48 | EKG ---
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: [place] : 1965 Requested By: Kelly Arvizu Order Number: [id number] MD: Jw Iqbal Measurements Intervals [place] Rate: 71 P: 69 SD: 156 QRS: 53 QRSD: 95 T: 66 QT: 492 QTc: 535 Interpretive Statements Sinus rhythm Ventricular premature complex Probable left atrial enlargement Anteroseptal infarct, age indeterminate Prolonged QT interval Compared to ECG 02/27/2021 01:18:41 Prolonged QT interval now present Myocardial infarct finding still present Electronically Signed On 02-27-2021 10:48:33 CDT by Jw Iqbal [email or web address] <ELECTRONICALLY SIGNED> By: Jw Iqbal MD, MERGED WITH [facility] 02/27/21 1048 0 0 Jw Iqbal MD, MERGED WITH [facility] /EPI
[2021-02-27 12:35] VITALS: BP 157/78
--- NOTE | 2021-02-27 13:25 | NUR ---
PATIENT DISCHARGED TO HOME. DISCHARGE PAPERS VIEWED AND SIGNED. IV REMOVED. NO NEW PRESCRIPTIONS. PATIENT DENIES ANY FURTHER NEEDS. PATIENT TAKEN BY WHEELCAHIR TO EXIT. LEFT WITH .
[2021-02-27 13:29] VITALS: BP 157/78
== END 2021-02-27 13:25 | disposition home or self-care (01) ==
LOC: M.ERS 21:28 → M.TBA-ER 02-27 03:29
PROVIDERS: Personal Emergency Response Attendant; ADMIT Internal Medicine; ATTEND Internal Medicine
DX: F41.1 Generalized anxiety disorder (principal); E11.649 Type 2 diabetes mellitus with hypoglycemia without coma; Z20.822 Contact with and (suspected) exposure to COVID-19; I21.4 Non-ST elevation (NSTEMI) myocardial infarction; I12.9 Hypertensive chronic kidney disease with stage 1 through stage 4 chronic kidney disease, or unspecified chronic kidney disease; R11.2 Nausea with vomiting, unspecified; E11.22 Type 2 diabetes mellitus with diabetic chronic kidney disease; N18.30 Chronic kidney disease, stage 3 unspecified; G93.41 Metabolic encephalopathy; R79.89 Other specified abnormal findings of blood chemistry; I25.10 Atherosclerotic heart disease of native coronary artery without angina pectoris; E78.5 Hyperlipidemia, unspecified; G89.29 Other chronic pain; K21.9 Gastro-esophageal reflux disease without esophagitis; F17.210 Nicotine dependence, cigarettes, uncomplicated; Z98.890 Other specified postprocedural states; Z79.82 Long term (current) use of aspirin; Z79.899 Other long term (current) drug therapy; Z88.0 Allergy status to penicillin; Z88.5 Allergy status to narcotic agent; Z88.8 Allergy status to other drugs, medicaments and biological substances